=== PATIENT | male | born 1930 | race Caucasian/White ===

== ENCOUNTER 2018-12-20 09:16 | Emergency (ER) | payer MEDICARE ==
[~2018-12-20] VITALS: Ht 167.6 cm; Wt 59.7 kg
[~2018-12-20 09:16] MED LIST changes: -OMNIPAQUE 350 MG/ML, 100ML BOTTLE ONE
[2018-12-20 09:53] LABS: BASOPHILS # (AUTO) 0.07 x10^3/uL (0-0.1); BASOPHILS % (AUTO) 1 % (0-1); EOSINOPHILS # (AUTO) 0.03 x10^3/uL (0-0.4); EOSINOPHILS % (AUTO) 0 % (1-7); LYMPHOCYTES % (AUTO) 23 % (22-44); MD NO; MEAN CORPUSCULAR HGB CONC 32.3 g/dL (33.2-36.2); MEAN CORPUSCULAR VOLUME 89.7 fL (81-97); MONOCYTES # (AUTO) 0.96 x10^3/uL (0.2-0.8); MONOCYTES % (AUTO) 11 % (2-9); NEUTROPHILS # (AUTO) 5.91 x10^3/uL (1.8-6.8); NEUTROPHILS % (AUTO) 65 % (42-75); PLATELET COUNT 208 x10^3/uL (130-400); RED BLOOD COUNT 4.76 x10^6/uL (4.38-5.82); RED CELL DISTRIBUTION WIDTH 15.7 % (9.4-14.8)
[2018-12-20 10:04] LABS: INTERNATIONAL NORMALIZED RATIO 1.01 (0.93-1.1); PROTHROMBIN TIME 10.6 Seconds (9.6-11.5)
[2018-12-20 10:05] LABS: ALANINE AMINOTRANSFERASE 154 U/L (12-78); ALBUMIN 3.2 g/dL (3.4-5.0); ANION GAP 4 mmol/L (5-15); CALCIUM 8.5 mg/dL (8.5-10.1); CHLORIDE 107 mmol/L (98-107); CREATININE 1.27 mg/dL (0.7-1.3)
[2018-12-20 10:08] LABS: ALKALINE PHOSPHATASE 512 U/L (45-117); BILIRUBIN,TOTAL 0.7 mg/dL (0.2-1.0); TOTAL PROTEIN 6.8 g/dL (6.4-8.2)
--- NOTE | 2018-12-20 10:12 | NUR ---
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
--- NOTE | 2018-12-20 11:31 | NUR ---
PT RESTING ON GURNEY. NADN. JOSE.
[2018-12-20 11:41] VITALS: BP 164/63
--- NOTE | 2018-12-20 11:41 | NUR ---
THIS FLOAT RN AT BEDSIDE TO DC PT FOR PRIMARY RN, SOY. PT AND SPOUSE VERBALIZED UNDERSTANDING TO DC INSTRUCTIONS. AMBULATORY TO CHECKOUT C STEADY GAIT. VSS.
== END 2018-12-20 11:43 | disposition home or self-care (01) ==
LOC: ED 11:04
DX: R94.5 Abnormal results of liver function studies (principal); R16.0 Hepatomegaly, not elsewhere classified; R11.0 Nausea; R10.11 Right upper quadrant pain; R42 Dizziness and giddiness; E11.9 Type 2 diabetes mellitus without complications; I10 Essential (primary) hypertension; Z87.891 Personal history of nicotine dependence
CPT/HCPCS: 36415; 76700; 80053; 80074; 83690; 85025; 85610; 85730; 93005; 99284

== ENCOUNTER → 2018-12-20 | Outpatient (CLI) | payer MEDICARE ==
[~2018-12-20] MED LIST: ASPI-515 PO; ATEN25TA PO; ATOR40TA78 PO; CLOP75TA52 PO; LISI-167 PO; OMNIPAQUE 350 MG/ML, 100ML BOTTLE ONE; SITA50TA PO
== END | disposition home or self-care (01) ==
LOC: RAD 16:08
PROVIDERS: ATTEND Family Medicine
DX: I63.9 Cerebral infarction, unspecified (principal); I67.82 Cerebral ischemia; I65.23 Occlusion and stenosis of bilateral carotid arteries; I70.0 Atherosclerosis of aorta; K76.9 Liver disease, unspecified; M95.4 Acquired deformity of chest and rib; J43.2 Centrilobular emphysema; R16.0 Hepatomegaly, not elsewhere classified; N28.1 Cyst of kidney, acquired; K80.20 Calculus of gallbladder without cholecystitis without obstruction; K83.8 Other specified diseases of biliary tract; K86.2 Cyst of pancreas; M47.814 Spondylosis without myelopathy or radiculopathy, thoracic region; M47.816 Spondylosis without myelopathy or radiculopathy, lumbar region; M47.817 Spondylosis without myelopathy or radiculopathy, lumbosacral region; M85.88 Other specified disorders of bone density and structure, other site; R59.9 Enlarged lymph nodes, unspecified; K40.90 Unilateral inguinal hernia, without obstruction or gangrene, not specified as recurrent; Q25.46 Tortuous aortic arch; Z90.89 Acquired absence of other organs
CPT/HCPCS: 70460; 71260; 74177; Q9967

== ENCOUNTER 2019-01-04 08:06 | Day surgery (SDC) | payer MEDICARE ==
[~2019-01-04] VITALS: Ht 172.7 cm; Wt 57.8 kg
[2019-01-04 08:51] VITALS: BP 115/56
[2019-01-04] MEDS ORDERED: FENTANYL PF 100 MCG/2ML ONE (09:44)
[2019-01-04] MEDS ORDERED: FLUMAZENIL 0.1 MG/1 ML, 5ML ONE (09:45)
[2019-01-04] MEDS ORDERED: NALOXONE 1 MG/ML, 2ML ONE (09:45)
[2019-01-04] MEDS ORDERED: MIDAZOLAM 1 MG/ML, 5ML ONE (09:45)
[2019-01-04] MEDS ORDERED: LIDOCAINE-MPF 1%, 5ML ONE (09:48)
[2019-01-04 09:59] LABS: INTERNATIONAL NORMALIZED RATIO 1.04 (0.93-1.1); PROTHROMBIN TIME 10.9 Seconds (9.6-11.5)
== END 2019-01-04 14:25 | disposition home or self-care (01) ==
LOC: OUT 08:06 → EDSTATUS 10:00 → OUT 14:25
PROVIDERS: ATTEND Internal Medicine Gastroenterology
DX: K76.89 Other specified diseases of liver (principal); E11.9 Type 2 diabetes mellitus without complications; I10 Essential (primary) hypertension; I25.10 Atherosclerotic heart disease of native coronary artery without angina pectoris; Z87.891 Personal history of nicotine dependence; Z79.82 Long term (current) use of aspirin; Z85.46 Personal history of malignant neoplasm of prostate; Z95.1 Presence of aortocoronary bypass graft; Z95.5 Presence of coronary angioplasty implant and graft; Z98.890 Other specified postprocedural states; Z79.84 Long term (current) use of oral hypoglycemic drugs
CPT/HCPCS: 36415; 47000; 76942; 82962; 85610; 88307; 88341; 88342; 93005; 99156; 99157; J2250; J3010; J2310